=== PATIENT | female | born 1995 | race African-American/Black ===

== ENCOUNTER 2020-06-14 14:10 | Emergency (ER) | payer OTHER ==
[~2020-06-14] VITALS: Ht 162.6 cm; Wt 52.0 kg
[2020-06-14 14:49] VITALS: BP 116/68
== END 2020-06-14 17:43 | disposition home or self-care (01) ==
LOC: ER 14:10
DX: M54.2 Cervicalgia (principal)
CPT/HCPCS: 81025; 99282

== ENCOUNTER 2020-12-14 10:54 | Emergency (ER) | payer OTHER ==
[~2020-12-14] VITALS: Ht 215.9 cm; Wt 53.0 kg
[2020-12-14 11:10] VITALS: BP 107/63
[2020-12-14 13:00] LABS: CLARITY URINE CLEAR (CLEAR); COLOR URINE YELLOW (YELLOW); KETONES URINE 1+ (NEGATIVE); LEUKOCYTE ESTERASE URINE NEGATIVE (NEGATIVE); NITRITE URINE NEGATIVE (NEGATIVE); OCCULT BLOOD URINE NEGATIVE (NEGATIVE); PROTEIN URINE NEGATIVE (NEGATIVE); SPECIFIC GRAVITY URINE 1.012 (1.005-1.030)
[2020-12-14 13:03] LABS: BASOPHILS % 1.2 % (0.0-2.0); EOSINOPHILS % 1.1 % (0.0-5.0); HEMOGLOBIN. 14.7 g/dL (12.0-16.0); LYMPHOCYTES % 34.6 % (20.0-50.0); MEAN CORPUSCULAR HEMOGLOBIN 29.2 pg (28.0-32.0); MEAN CORPUSCULAR VOLUME 83.5 fL (81.0-99.0); MONOCYTES % 10.3 % (2.0-8.0); NEUTROPHILS % 52.8 % (40.0-76.0); PLATELET 218 x1000/uL (130-400); RED BLOOD CELL COUNT 5.03 mill/uL (4.2-5.4); RED CELL DISTRIBUTION WIDTH 13.3 % (11.6-14.6)
[2020-12-14 13:10] LABS: CHLORIDE 107 mEq/L (98-107)
[2020-12-14 13:51] LABS: B-HCG QUANTITATIVE 28429 mIU/mL (<3)
== END 2020-12-14 13:56 | disposition home or self-care (01) ==
LOC: ER 10:54
DX: O20.0 Threatened abortion (principal); Z3A.01 Less than 8 weeks gestation of pregnancy
CPT/HCPCS: 36415; 76801; 80053; 81003; 81025; 84702; 85025; 86850; 86900; 99284

== ENCOUNTER 2023-01-02 19:15 | Emergency (ER) | payer OTHER ==
[~2023-01-02] VITALS: Ht 157.5 cm; Wt 49.0 kg
[2023-01-02 19:38] VITALS: BP 114/62
[2023-01-02 21:10] LABS: BASOPHILS % 0.8 % (0.0-2.0); EOSINOPHILS % 2.7 % (0.0-5.0); HEMATOCRIT. 36.3 % (36.0-48.0); HEMOGLOBIN. 11.8 g/dL (12.0-16.0); LYMPHOCYTES % 45.5 % (20.0-50.0); MEAN CORPUSCULAR HEMOGLOBIN 25.1 pg (28.0-32.0); MEAN CORPUSCULAR VOLUME 77.2 fL (81.0-99.0); MEAN PLATELET VOLUME 8.2 fl (7.4-10.4); MONOCYTES % 11.5 % (2.0-8.0); NEUTROPHILS % 39.5 % (40.0-76.0); PLATELET 278 x1000/uL (130-400); RED CELL DISTRIBUTION WIDTH 17.3 % (11.6-14.6)
[2023-01-02 21:26] LABS: CHLORIDE 106 mEq/L (98-107)
[2023-01-02 21:47] LABS: B-HCG QUANTITATIVE 1054 mIU/mL (<3)
[2023-01-02] MEDS ORDERED: PREN-28 MT (22:53)
== END 2023-01-02 23:00 | disposition home or self-care (01) ==
LOC: ER 19:15
DX: O20.0 Threatened abortion (principal); Z3A.01 Less than 8 weeks gestation of pregnancy
CPT/HCPCS: 36415; 76801; 80053; 81025; 84702; 85025; 86850; 86900; 99284